=== PATIENT | female | born 1950 | race Caucasian/White ===

== ENCOUNTER 2020-04-06 09:03 | Emergency (ER) | payer BC, OTHER, SELFPAY ==
[2020-04-06 09:08] VITALS: BP 174/107; PULSE 109; RESP 16; TEMP 36.4; O2SAT 93; BMI 38.7
--- NOTE | 2020-04-06 09:54 | W.ED.NEUROSD ---
HPI - Neuro Symptoms/Deficit General: Chief Complaint: Neuro Symptoms/Deficit Stated Complaint: Numbness on Face/Covid + Time Seen by Provider: 04/06/20 09:18 History of Present Illness: HPI Narrative: 69-year-old female comes in complaining of right-sided facial droop involving her eye right corner of her mouth. This started 4 days ago. She is not had any other symptoms relating to her hands or her feet denies difficulty speech or swallowing she has had a little drooling out of the corner of her mouth and abnormal sensation in the anterior part of her tongue. She did not have any sequela that preceded this. Incidentally she had begun having symptoms late last week of Covid and was tested 3 days ago she received the result back today as positive. She has no shortness of breath she is not been complaining of any fever sweats or chills she is not normally on oxygen. Onset (ago): day(s) (4) Location: right face History of same: No Severity: moderate Quality: weak Relieving factors: none Exacerbating factors: none Context: gradual onset On Anticoagulants: No Associated symptoms: Reports cough and nausea; Deny chest pain, diaphoresis, fevers/chills, headache(s), anorexia, malaise, seizures, short of breath, syncope, tingling, vertigo, vomiting, weakness or other Treatments Prior to Arrival: none Review of Systems Const: Denies: malaise or diaphoresis Card: Denies: chest pain or syncope GI: Reports: nausea; Denies: vomiting Neuro: Denies: headache(s) or vertigo NIH stroke score NIHSS: Level Of Consciousness - 1a: 0 Level Of Consciousness Questions - 1b: Both Correct Level Of Consciousness Commands - 1c: Both Correct Best Gaze - 2: Normal Visual Clemons - 3: No Visual Loss Facial Palsy - 4: Partial Paralysis Motor Arm Right - 5: No Drift Motor Arm Left - 5: No Drift Motor Leg Right - 6: No Drift Motor Leg Left - 6: No Drift Limb Ataxia - 7: Absent Sensory - 8: Mild To Moderate Loss Best Language - 9: No Aphasia Dysarthia - 10: Normal Extinction And Inattention - 11: 0 Score: Total Score: 3 Physical Exam Const: COMMON NORMALS: no acute distress GENERAL APPEARANCE: cooperative and comfortable ORIENTATION/CONSCIOUSNESS: Yes awake, Yes oriented to person, Yes oriented to place and Yes oriented to time HENMT: COMMON NORMALS: normocephalic, atraumatic and hearing grossly normal bilaterally HEAD & SCALP: normocephalic and atraumatic Eye: COMMON NORMALS: Equal, round and reactive pupils present, EOMs intact bilaterally, conjunctivae normal and no scleral icterus CONJUNCTIVA: Yes conjunctivae normal PUPIL: Yes Equal, round and reactive pupils present Neck/C-Spine: COMMON NORMALS: full ROM, no lymphadenopathy, supple and no JVD Lymph: LYMPHATIC: no lymphadenopathy noted and no lymphedema noted Resp: COMMON NORMALS: normal respiratory effort, No retractions, No use of accessory muscles and clear to auscultation bilaterally AUSCULTATION: clear to auscultation bilaterally Cardio: COMMON NORMALS: no JVD, regular rate, regular rhythm and No murmurs present (Cardio) RATE: regular rate RHYTHM: regular rhythm GI: COMMON NORMALS: Soft to palpation and No hepatosplenomegaly present AUSCULTATION: Yes normoactive bowel sounds PALPATION: Yes Soft to palpation, No Tenderness to palpation present (GI), No Guarding due to palpation present (GI) and Yes No hepatosplenomegaly present Extremity: COMMON NORMALS: normal to inspection, capillary refill normal, no clubbing, cyanosis or edema, no calf tenderness and no pedal edema Neuro: SENSORIUM/ORIENTATION: Yes oriented to person, Yes oriented to place and Yes oriented to time OTHER: Exam consistent with Chakraborty's palsy Skin: COMMON NORMALS: no rashes or lesions noted GENERAL SKIN EXAM: no rashes or lesions noted Course Vital Signs: Vital signs: Vital Signs Temperature 97.6 F 04/06/20 09:08 Pulse Rate 75 04/06/20 12:55 Respiratory Rate 15 04/06/20 12:55 Blood Pressure 158/82 04/06/20 12:55 Pulse Oximetry 95 04/06/20 12:55 MDM - Neuro Symptoms/Deficit MDM Narrative: Medical decision making narrative: Based on the patient's age and BMI she meets inclusion criteria for the monoclonal antibody therapy for Covid. Were going to go ahead and infuse that. I did discuss with her the medication we discussed risk benefits. We also confirmed with the cobol application developer ill at the [facility] that there are no human blood products used in cobol application developer of this medication. She wishes to go ahead she signed consent will be infused and monitored and discharged home follow-up with her primary care doctor. Discharge Plan Discharge Patient Disposition: Home Clinical Impression: Chakrabroty's palsy, COVID-19 Condition: Stable Prescriptions: New prednisone 20 mg tablet 60 mg PO DAILY 5 Days Qty: 30 RF: 0 No Action multivitamin Tablet 1 tab PO DAILY RF: 0 Vitamin C 1,000 mg Tablet 1,000 mg PO DAILY RF: 0 zdebiml-bbshbmapp-bivv Tablet 1 tab PO DAILY RF: 0 niacin 250 mg Tablet 250 mg PO DAILY RF: 0 [place] 3 Capsule 1,000 mg PO DAILY RF: 0 Tart Patel Extract 1,000 mg Capsule 1,000 mg PO DAILY RF: 0 Joint Health 40-10-5-3.3 mg Tablet 1 tab PO DAILY RF: 0 Calmseng 1 tab PO DAILY RF: 0 Discharge Orders: Discharge Order (Routine); Ordered 04/06/20 Ordered By: Jatinder Mathew Referrals: Dipak Hernandez, BJ [Primary Care Provider] - Discharge Diet: Usual diet Discharge Activity: Limit activity as instructed Activity Restrictions/Additional Instructions: Maintain self quarantine as directed by the health department. Follow-up with your doctor in 2 to 3 days if you have any worsening or changes symptoms return to the emergency room particularly if you have increased shortness of breath. Coding Level of Care Code ED Sports Team Marketing Intern for [facility] Fwd Exam Comprehensive Bamlanivimab Consideration Inclusion/Exclusion Criteria age >/= 65 positive PCR test at [facility] BMI >/= 35 and hypertension not requiring hospitalization, not requiring oxygen (if not chronically on oxygen) and no increase oxygen requirement (if chronically on oxygen) Patient education Bamlanivimab education: patient/family/caregiver received/reviewed fact sheet, Emergency Use Authorization/unapproved drug status discussed with patient/family/caregiver, alternatives to this treatment discussed with patient/family/caregiver, risks and benefits of medication reviewed with patient/family/caregiver and patient/family/caregiver given opportunity for questions, which were answered Plan for treatment Meets criteria for BAM infusion Bamlanivimab information given and Order infusion of Bamlanivimab today. Other information Patient had concerns due to her zoroastrianism. She is a Spiritism. Reviewing the data that I have available it is a human immunoglobulin that is manufactured in [employer] ham[employer] ovaries. I contacted pharmacy and they contacted [facility] we were told that there are no human blood products used in the cobol application developer of this treatment. This was relayed to the patient and she wishes to proceed and has signed the consent.
[2020-04-06 11:03] VITALS: BP 175/96; PULSE 85; RESP 16; O2SAT 92
[2020-04-06 12:55] VITALS: BP 158/82; PULSE 75; RESP 15; O2SAT 95
--- NOTE | 2020-04-14 14:17 | DCPLANNER ---
health plan manager made follow up phone call with patient due to receiving BAM infusion.
== END 2020-04-06 12:57 | disposition home or self-care (01) ==
PROVIDERS: Emergency Provider Family Medicine; PCP Nurse Practitioner
DX: G51.0 Bell's palsy (principal); U07.1 COVID-19
CPT/HCPCS: 12345; 96365; 99283; J7050

== ENCOUNTER 2022-05-18 16:08 | Outpatient (CLI) | payer MEDICARE, SELFPAY ==
--- NOTE | 2022-05-18 16:21 | XRR_ITS ---
PROCEDURE INFORMATION: Exam: XR Right Foot Exam date and time: 05/18/2022 4:23 PM Age: 71 years old Clinical indication: Injury or trauma; Fall; Sprain or strain; Foot; Right; Injury date: 05/18/22; Injury details: Tripped and fell in hole today; Additional info: Foot joint pain, right TECHNIQUE: Imaging protocol: Radiologic exam of the Right foot. Views: 3 or more views. COMPARISON: No relevant prior studies available. FINDINGS: Bones/joints: Somewhat equivocal horizontal fractures to the 2nd, 3rd and possibly 4th metatarsal proximal metadiaphyseal regions on the AP view, CT could further characterize this. Oamq-cx-qpjzmisq diffuse intertarsal joint osteoarthritis. Soft tissues: Diffuse soft tissue swelling about the foot. XR/XR foot RT min 3V* [id number] IMPRESSION: 1. Somewhat equivocal horizontal fractures to the 2nd, 3rd and possibly 4th metatarsal proximal metadiaphyseal regions on the AP view, CT could further characterize this. 2. Diffuse soft tissue swelling about the foot. 3. Coad-cd-cdxkxpyz diffuse intertarsal joint osteoarthritis.
== END 2022-05-18 16:09 | disposition home or self-care (01) ==
LOC: RAD 16:13
PROVIDERS: PCP Nurse Practitioner Family; Visit Provider Nurse Practitioner Family
DX: M19.071 Primary osteoarthritis, right ankle and foot (principal); M79.89 Other specified soft tissue disorders
CPT/HCPCS: 73630

== ENCOUNTER → 2022-05-23 09:04 | Outpatient (BNVA) | payer MEDICARE, SELFPAY | PROVIDERS: PCP Nurse Practitioner Family; Referring Provider Nurse Practitioner Family; Visit Provider Specialist | DX: W18.09XA Striking against other object with subsequent fall, initial encounter (principal); S92.901A Unspecified fracture of right foot, initial encounter for closed fracture | CPT/HCPCS: 99204 ==

== ENCOUNTER → 2022-05-23 10:05 | Outpatient (BNVA) | payer MEDICARE, SELFPAY | PROVIDERS: PCP Nurse Practitioner Family; Referring Provider Nurse Practitioner Family; Visit Provider Specialist | DX: W18.09XA Striking against other object with subsequent fall, initial encounter (principal); S92.901A Unspecified fracture of right foot, initial encounter for closed fracture | CPT/HCPCS: 73630 ==

== ENCOUNTER 2022-05-23 14:59 | Outpatient (CLI) | payer MEDICARE, SELFPAY | END 2022-05-23 15:00 | disposition home or self-care (01) | LOC: SPT 15:03 | PROVIDERS: PCP Nurse Practitioner Family; Visit Provider Specialist | DX: Z46.89 Encounter for fitting and adjustment of other specified devices (principal); S93.324D Dislocation of tarsometatarsal joint of right foot, subsequent encounter; X58.XXXD Exposure to other specified factors, subsequent encounter | CPT/HCPCS: 97760; L4361 ==

== ENCOUNTER 2025-01-08 12:45 | Emergency (ER) | payer MEDICARE, OTHER, SELFPAY ==
[2025-01-08 13:11] VITALS: BP 152/73; PULSE 84; RESP 16; O2SAT 96
[2025-01-08] MEDS: tetanus-dipt-pertussis 0.5 mL SDV IM (14:24)
--- NOTE | 2025-01-08 14:33 | W.ED.WOUNDLC ---
HPI - Wound/Laceration General: Chief Complaint: Wound/Laceration Stated Complaint: LT Thumb lac Time Seen by Provider: 01/08/25 14:30 Source: patient Mode of arrival: ambulatory Limitations: no limitations History of Present Illness: Patient is a 74-year-old female presents to ED today for evaluation of a finger injury that she sustained just prior to arrival after she accidentally cut her left thumb while using a knife in the kitchen. Last tetanus is unknown. Onset (ago): hour(s) Extremity Location: Left: hand (thumb) Place: home Patient tetanus UTD: No Context: accidental Associated symptoms: Reports no associated symptoms Treatments prior to arrival: bandage Related Data Home Medications ?Medication ?Instructions ?Recorded ?Confirmed Calmseng 1 tab PO DAILY 04/06/20 05/23/22 ascorbic acid (vitamin C) 1,000 mg 1,000 mg PO DAILY 04/06/20 05/23/22 tablet (Vitamin C) jawbtmo-kdwgfhsek-utzh tablet 1 tab PO DAILY 04/06/20 05/23/22 cartilage 40 mg-collagen II 10 1 tab PO DAILY 04/06/20 05/23/22 mg-boron 5 mg-hyaluronate 3.3 mg tablet ([employer] [facility]) multivitamin 1 tab PO DAILY 04/06/20 05/23/22 niacin 250 mg tablet 250 mg PO DAILY 04/06/20 05/23/22 omega-3 fatty acids 1,000 mg PO DAILY 04/06/20 05/23/22 sour patel extract 1,000 mg 1,000 mg PO DAILY 04/06/20 05/23/22 capsule (Tart Patel Extract) prednisone 20 mg tablet 60 mg PO DAILY 04/14/20 05/23/22 Previous Rx's ?Medication ?Instructions ?Recorded carboxymethylcellulose sodium 0.7 1 drp ophthalmic (eye) QID #15 mL 04/14/20 % eye liquid gel drops (Sterile Lubricant) Cam Walker #1 ea 05/23/22 Allergies Allergy/AdvReac Type Severity Reaction Status Date / Time No Known Allergies Allergy Verified 05/23/22 10:10 Review of Systems Musc: Reports: extremity pain; Denies: extremity swelling, joint pain or joint swelling Skin/Breast: Reports: other (skin injury L thumb) Neuro: Denies: numbness in extremities or sensory changes PFS ED PFSH: Medical History 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 Aguilera partial right knee replacement History of hysterectomy 2017 with BSO Family History Brother Psychiatric illness Other Cancer Diabetes Heart disease Hypertension Social History Smoking and tobacco/nicotine status: never used tobacco/nicotine Second hand smoke exposure: No Alcohol intake: never Substance/Drug Use: never Adopted: No Caregiver/support person: No Lives independently: Yes Household members: friend(s) Housing: House Marital status: Single Number of children: 2 service: No Current occupational status: employed Current occupation: [employer] Do you think of yourself as: Straight/Heterosexual Current gender identity: Female Physical Exam Const: COMMON NORMALS: no acute distress, average body habitus, no limitations, healthy appearing, alert and well nourished Extremity: COMMON NORMALS: full ROM and capillary refill normal GENERAL: Yes normal exam except as noted LEFT UPPER EXTREMITY: Yes hand & digits (distal skin tip amputation/skin avulsion; no repairable laceration) Left hand and digits: Yes ROM (normal), Yes neurovascular exam (normal) and Yes tendon exam (normal) Neuro: COMMON NORMALS: moves all extremities, no focal motor deficits and no sensory deficits noted SENSORIUM/ORIENTATION: Yes alert Skin: NARRATIVE SKIN EXAM: L thumb skin injury Course Vital Signs: Vital signs: Vital Signs Pulse Rate 84 01/08/25 13:11 Respiratory Rate 16 01/08/25 13:11 Blood Pressure 152/73 01/08/25 13:11 Pulse Oximetry 96 01/08/25 13:11 Oxygen Delivery Me thod Room Air 01/08/25 13:11 MDM - Wound/Laceration Medical Decision Making There is nothing to repair at this time. Patient has a distal left thumb skin tip amputation/skin avulsion. Wound care/infection precautions discussed. She can follow-up with primary care over the course of the next few weeks to ensure proper healing. Medical Records I reviewed the patient's medical records. No radiology studies performed this visit Discharge Plan Discharge Patient Disposition: Home Clinical Impression: Avulsion of skin of finger Qualifiers: Encounter type: initial encounter Qualified Code(s): S61.209A - Unspecified open wound of unspecified finger without damage to nail, initial encounter Condition: Stable Prescriptions: No Action prednisone 20 mg tablet 60 mg PO DAILY Rx Instructions: for 10 days Sterile Lubricant 0.7 % drops, liquid gel 1 drp ophthalmic (eye) QID Qty: 15 0RF (DME) Cam Walker See Rx Instructions .ROUTE .MEDSUPPLY Qty: 1 0RF Rx Instructions: As directed multivitamin Tablet 1 tab PO DAILY Vitamin C 1,000 mg Tablet 1,000 mg PO DAILY huykupx-kzrpjutpp-hgyd Tablet 1 tab PO DAILY niacin 250 mg Tablet 250 mg PO DAILY [place] 3 Capsule 1,000 mg PO DAILY Tart Patel Extract 1,000 mg Capsule 1,000 mg PO DAILY Joint Health 40-10-5-3.3 mg Tablet 1 tab PO DAILY Calmseng 1 tab PO DAILY Discharge Orders: Discharge ED (Routine); Ordered 01/08/25 Ordered By: Ashia Bach Referrals: Shante Wray DO [Primary Care Provider, SWING TYPE LATHE OPERATOR] Patient Instructions: Skin Avulsion, Skin Avulsion (ED), Patient Portal & Nate Instructions Activity Restrictions/Additional Instructions: As we discussed, there is no laceration to repair at this time. Keep wound clean with warm soap and water. If wound begins to bleed/ooze you may apply direct firm pressure for 30 minutes. You may also use the clotting gauze provided to you today. Continue to follow-up with primary care for wound management/monitor healing. Print Language: Malay Coding Level of Care Code ED Academic Affairs Coordinator for [facility]
== END 2025-01-08 14:47 | disposition home or self-care (01) ==
PROVIDERS: Emergency Provider Physician Assistant; PCP Family Medicine
DX: S61.012A Laceration without foreign body of left thumb without damage to nail, initial encounter (principal); W26.0XXA Contact with knife, initial encounter
CPT/HCPCS: 90715; 99283

== ENCOUNTER 2025-02-27 12:20 | Emergency (ER) | payer MEDICARE, OTHER, SELFPAY ==
--- NOTE | 2025-02-27 12:22 | XR_ITS ---
WS: [id number] [place] [id number] REASON FOR EXAM: Trauma FINDINGS: Mildly comminuted mildly displaced fracture of the surgical neck of the proximal humerus. Remainder of the humerus is intact. XR/[place] [id number] IMPRESSION: Proximal right humeral fracture as above.
--- NOTE | 2025-02-27 12:22 | XR_ITS ---
WS: [id number] XR shoulder RT min 2V* [id number] REASON FOR EXAM: Trauma FINDINGS: Clavicle and scapula intact. Minimally comminuted minimally displaced fracture of the surgical neck of the humerus. Moderate to significant osteoarthritis in the acromioclavicular joint and moderate osteoarthritis in the glenohumeral joint. XR/XR shoulder RT min 2V* [id number] IMPRESSION: Proximal right humeral fracture.
[2025-02-27 12:23] VITALS: BP 113/62; PULSE 69; RESP 16; TEMP 36.6; O2SAT 94; BMI 38.9
--- NOTE | 2025-02-27 12:46 | W.ED.FALL ---
HPI - Fall General: Chief Complaint: Fall Stated Complaint: fall - right shoulder pain Time Seen by Provider: 02/27/25 12:22 History of Present Illness: 74-year-old female presents to the emergency room with right shoulder pain. She fell on an outstretched hand mechanical ground-level fall when she slipped on gravel. She denies any other injury localizes all her pain to the proximal humerus. Did not strike her head did not lose consciousness Associated symptoms-after fall: Denies abdominal pain, chest pain or neck pain Related Data Home Medications ?Medication ?Instructions ?Recorded ?Confirmed Calmseng 1 tab PO DAILY 04/06/20 05/23/22 ascorbic acid (vitamin C) 1,000 mg 1,000 mg PO DAILY 04/06/20 05/23/22 tablet (Vitamin C) mnwvmoy-yullsnfza-jqex tablet 1 tab PO DAILY 04/06/20 05/23/22 cartilage 40 mg-collagen II 10 1 tab PO DAILY 04/06/20 05/23/22 mg-boron 5 mg-hyaluronate 3.3 mg tablet ([facility]) multivitamin 1 tab PO DAILY 04/06/20 05/23/22 niacin 250 mg tablet 250 mg PO DAILY 04/06/20 05/23/22 omega-3 fatty acids 1,000 mg PO DAILY 04/06/20 05/23/22 sour patel extract 1,000 mg 1,000 mg PO DAILY 04/06/20 05/23/22 capsule (Tart Patel Extract) prednisone 20 mg tablet 60 mg PO DAILY 04/14/20 05/23/22 Previous Rx's ?Medication ?Instructions ?Recorded carboxymethylcellulose sodium 0.7 1 drp ophthalmic (eye) QID #15 mL 04/14/20 % eye liquid gel drops (Sterile Lubricant) Cam Walker #1 ea 05/23/22 hydrocodone 5 mg-acetaminophen 325 1 tab PO Q6H PRN pain #15 tabs 02/27/25 mg tablet Allergies Allergy/AdvReac Type Severity Reaction Status Date / Time No Known Allergies Allergy Verified 05/23/22 10:10 Review of Systems Const: Denies: fever(s) or chills Card: Denies: chest pain Resp: Denies: dyspnea GI: Denies: abdominal pain : Denies: dysuria, urinary frequency or urinary urgency Musc: Reports: joint pain and joint swelling; Denies: neck pain or back pain Skin/Breast: Denies: rash PFSH ED PFSH: Medical 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 Aguilera partial right knee replacement History of hysterectomy 2017 with BSO Family History Brother Psychiatric illness Other Cancer Diabetes Heart disease Hypertension Social History Smoking and tobacco/nicotine status: never used tobacco/nicotine Second hand smoke exposure: No Alcohol intake: never Substance/Drug Use: never Adopted: No Caregiver/support person: No Lives independently: Yes Household members: friend(s) Housing: House Marital status: Single Number of children: 2 service: No Current occupational status: employed Current occupation: [employer] Do you think of yourself as: Straight/Heterosexual Current gender identity: Female Physical Exam Const: COMMON NORMALS: no acute distress GENERAL APPEARANCE: cooperative ORIENTATION/CONSCIOUSNESS: Yes awake, Yes oriented to person, Yes oriented to place and Yes oriented to time HENMT: COMMON NORMALS: normocephalic, atraumatic and hearing grossly normal bilaterally HEAD & SCALP: normocephalic and atraumatic Resp: COMMON NORMALS: normal respiratory effort, No retractions, No use of accessory muscles and clear to auscultation bilaterally AUSCULTATION: clear to auscultation bilaterally Cardio: COMMON NORMALS: regular rate, regular rhythm and No murmurs present (Cardio) RATE: regular rate RHYTHM: regular rhythm GI: COMMON NORMALS: Soft to palpation and No hepatosplenomegaly present AUSCULTATION: Yes normoactive bowel sounds PALPATION: Yes Soft to palpation, No Tenderness to palpation present (GI), No Guarding due to palpation present (GI) and Yes No hepatosplenomegaly present Extremity: OTHER: Moderate discomfort swelling of the proximal right humerus. Neurovascularly intact in the right upper extremity Neuro: SENSORIUM/ORIENTATION: Yes oriented to person, Yes oriented to place and Yes oriented to time Skin: COMMON NORMALS: no rashes or lesions noted GENERAL SKIN EXAM: no rashes or lesions noted Course Vital Signs: Vital signs: Vital Signs Temperature 97.9 F 02/27/25 12:23 Pulse Rate 75 02/27/25 13:34 Respiratory Rate 16 02/27/25 13:34 Blood Pressure 101/64 02/27/25 13:34 Pulse Oximetry 95 02/27/25 13:34 Oxygen Delivery Me thod Room Air 02/27/25 12:23 MDM - Fall Medical Decision Making Right proximal humerus fracture impacted and comminuted. Discharge home with pain medications sling no use of the right arm follow-up with orthopedics. Medical Records I reviewed the patient's medical records. Lab Data Radiology Impressions Humerus X-Ray 02/27/25 12:22 IMPRESSION: Proximal right humeral fracture as above. Shoulder X-Ray 02/27/25 12:22 IMPRESSION: Proximal right humeral fracture. All radiology interpretation(s) finalized by discharge Discharge Plan Discharge Patient Disposition: Home Clinical Impression: Fracture, humerus Condition: Stable Prescriptions: New hydrocodone-acetaminophen 5-325 mg tablet 1 tab PO Q6H PRN (Reason: pain) Qty: 15 0RF No Action prednisone 20 mg tablet 60 mg PO DAILY Rx Instructions: for 10 days Sterile Lubricant 0.7 % drops, liquid gel 1 drp ophthalmic (eye) QID Qty: 15 0RF (DME) Cam Walker See Rx Instructions .ROUTE .MEDSUPPLY Qty: 1 0RF Rx Instructions: As directed multivitamin Tablet 1 tab PO DAILY Vitamin C 1,000 mg Tablet 1,000 mg PO DAILY wsodkga-bebotwgie-xhix Tablet 1 tab PO DAILY niacin 250 mg Tablet 250 mg PO DAILY [place] 3 Capsule 1,000 mg PO DAILY Tart Patel Extract 1,000 mg Capsule 1,000 mg PO DAILY Joint Health 40-10-5-3.3 mg Tablet 1 tab PO DAILY Calmseng 1 tab PO DAILY Discharge Orders: Discharge ED (Routine); Ordered 02/27/25 Ordered By: Jatinder Mathew Referrals: Shante Wray DO [Primary Care Provider, ENGLISH FACULTY MEMBER] Discharge Diet: Usual diet Discharge Activity: Increase activity as tolerated Patient Instructions: Fractures - Humerus, Opioid Safety, Pain Management, Patient Portal & Nate Instructions Activity Restrictions/Additional Instructions: [facility] your healthcare needs today. It is very important that you follow up as instructed or that you return to the Emergency Department should you have concerns or if your condition changes or worsens in any way. Emergency department visits are focused on emergent conditions, in some cases you may require further evaluation on an outpatient basis. You were seen in the emergency room after a fall you have a proximal humerus fracture. These are treated in a sling. Case manage will make arrangements for you to follow-up with orthopedics. Will discharge you home with pain medications to use as needed. (Please note that included in your discharge packet is information concerning opioid safety and pain management. This information is given to all patients were discharged from the ER regardless of their discharge diagnosis or the medicines they usually take or are prescribed.) Stand Alone Forms: Work/School Release Print Language: Swazi Coding Level of Care Code ED [employer] Work for [facility]
[2025-02-27 13:34] VITALS: BP 101/64; PULSE 75; RESP 16; O2SAT 95
--- NOTE | 2025-03-06 07:57 | DCPLANNER ---
messaged ortho for er f/u
== END 2025-02-27 13:33 | disposition home or self-care (01) ==
PROVIDERS: Emergency Provider Family Medicine; PCP Family Medicine
DX: S42.201A Unspecified fracture of upper end of right humerus, initial encounter for closed fracture (principal); W18.30XA Fall on same level, unspecified, initial encounter
CPT/HCPCS: 73030; 73060; 99283; A4565

== ENCOUNTER → 2025-03-06 10:48 | Outpatient (BNVA) | payer MEDICARE, OTHER, SELFPAY | PROVIDERS: PCP Family Medicine; Visit Provider Orthopaedic Surgery | DX: S42.291A Other displaced fracture of upper end of right humerus, initial encounter for closed fracture (principal); W01.0XXA Fall on same level from slipping, tripping and stumbling without subsequent striking against object, initial encounter | CPT/HCPCS: 99204 ==

== ENCOUNTER → 2025-03-13 14:22 | Outpatient (BNVA) | payer MEDICARE, OTHER, SELFPAY | PROVIDERS: PCP Family Medicine; Visit Provider Orthopaedic Surgery | DX: S42.291D Other displaced fracture of upper end of right humerus, subsequent encounter for fracture with routine healing (principal); X58.XXXD Exposure to other specified factors, subsequent encounter | CPT/HCPCS: 73030; 99213 ==

== ENCOUNTER → 2025-03-28 11:10 | Outpatient (BNVA) | payer MEDICARE, OTHER, SELFPAY | PROVIDERS: PCP Family Medicine; Visit Provider Orthopaedic Surgery | DX: S42.291D Other displaced fracture of upper end of right humerus, subsequent encounter for fracture with routine healing (principal); X58.XXXD Exposure to other specified factors, subsequent encounter | CPT/HCPCS: 73030; 99213 ==

== ENCOUNTER → 2025-04-25 10:51 | Outpatient (BNVA) | payer MEDICARE, OTHER, SELFPAY | PROVIDERS: PCP Family Medicine; Visit Provider Orthopaedic Surgery | DX: S42.291D Other displaced fracture of upper end of right humerus, subsequent encounter for fracture with routine healing (principal); X58.XXXD Exposure to other specified factors, subsequent encounter | CPT/HCPCS: 73060; 99213 ==